=== PATIENT | male | born 1995 | race Caucasian/White ===

== ENCOUNTER 2018-11-15 20:39 | Emergency (ER) | payer OTHER ==
[~2018-11-15] VITALS: Ht 180.3 cm; Wt 96.0 kg
[2018-11-15 20:43] VITALS: BP 133/83
== END 2018-11-15 21:52 | disposition home or self-care (01) ==
LOC: M ED 20:39
DX: R45.851 Suicidal ideations (principal); F43.0 Acute stress reaction